=== PATIENT | female | born 1990 | race Caucasian/White ===

== ENCOUNTER 2024-03-14 14:20 | Outpatient (REF) | payer OTHER, SELFPAY ==
[2024-03-14 17:22] LABS: MANUAL DIFF FLAG NO
[2024-03-14 17:28] LABS: Basophils Percent Auto 0.8 % (0-2); Eosinophils Absolute Auto 0.2 X10*3/uL (0.0-0.4); Eosinophils Percent Auto 4.1 % (0-4); Hematocrit 36.1 % (37.0-47.0); Hemoglobin 12.1 g/dl (12.0-16.0); Imm Gran Abs Auto 0.03 X10*3/uL (0.00-0.03); Imm Gran Pct Auto 0.6 % (0.0-0.4); Lymphocytes Absolute Auto 1.6 X10*3/uL (1.2-4.9); Lymphocytes Percent Auto 30.8 % (20-40); Mean Corpuscular HGB Conc 33.5 g/dl (31.0-35.0); Mean Corpuscular Hemoglobin 28.9 pg (27.0-33.0); Mean Corpuscular Volume 86.4 fL (80.0-98.0); Mean Platelet Volume 11.5 fL (9.4-12.3); Monocytes Absolute Auto 0.3 X10*3/uL (0.1-1.2); Monocytes Percent Auto 5.9 % (2-11); Neutrophils Absolute Auto 2.9 x10*3/uL (2.0-8.3); Neutrophils Percent Auto 57.8 % (45-73); Platelet Count 227 X10*3/uL (160-400); Red Blood Count 4.18 X10*6/uL (4.20-5.50); Red Cell Distribution Width 12.1 % (11.0-16.0); White Blood Count 5.1 X10*3/uL (4.8-10.8)
[2024-03-14 17:41] LABS: Alanine Aminotransferase 20 U/L (0-31); Aspartate Amino Transferase 23 U/L (5-31); C Reactive Protein < 0.04 mg/dL (< or = 0.50); Estimated Glomerular Filt Rate > 60
[2024-03-14 18:08] LABS: Erythrocyte Sedimentation Rate 6 MM/HR (0-20)
[2024-03-14 18:13] LABS: Rheumatoid Factor < 13.0 IU/mL (<15.0)
[2024-03-15 03:53] LABS: HBS Num1 22.58 mIU/mL (0-7.99); HBc Num1 0.14 S/CO (0.00-0.79); HBsAGNum1 0.35 S/CO (0.00-0.99); Hepatitis B Core Antibody Nonreactive (Nonreactive); Hepatitis B Surface Antigen Negative (Negative); ~HepC Num1 0.13 S/CO (0.00-0.79); ~Hepatitis B Surface Antibody REACTIVE (Nonreactive); ~Hepatitis C Antibody Nonreactive (Nonreactive)
[2024-03-17 13:49] LABS: Anti Nuclear Antibody Pattern Nuclear, Speckled; Anti Nuclear Antibody Screen POSITIVE (NEGATIVE)
[2024-03-17 17:38] LABS: TS Negative Control Passed; TS Panel A 0; TS Panel B 1; TS Positive Control Passed; TSpotTB Negative (Negative)
[2024-03-17 18:28] LABS: Cyclic Citrullinated Peptide <16 UNITS
== END 2024-03-14 14:21 | disposition home or self-care (01) ==
LOC: HO.HKASLDS 14:20
PROVIDERS: PCP Internal Medicine; Visit Provider Internal Medicine Rheumatology
DX: M06.9 Rheumatoid arthritis, unspecified (principal); Z79.899 Other long term (current) drug therapy; Z79.60 Long term (current) use of unspecified immunomodulators and immunosuppressants; Z11.59 Encounter for screening for other viral diseases; Z72.89 Other problems related to lifestyle
CPT/HCPCS: 36415; 82565; 84450; 84460; 85025; 85652; 86038; 86039; 86140; 86200; 86431; 86481; 86704; 86706; 86803; 87340; 99212

== ENCOUNTER 2024-03-14 14:20 | Outpatient (AMB) | payer OTHER, SELFPAY ==
--- NOTE | 2024-03-14 14:26 | A.OFFVIS_ITS ---
Vital Signs 03/14/24 14:27 Height 5 ft 4 in Weight 134 lb 8 oz BMI 23.1 BP 100/62 Blood Pressure Location Lt brachial Position Sitting Pulse 81 Pulse Source Pulse Oximeter Pulse Oximetry (%) 99 Oxygen Delivery Method Room Air Intake Visit Reasons: RA Intake Note: Patient presents for follow up on RA today. She would like refill of hydroxychloroquine Accompanied by: Child Allergies codeine [CODEINE] Allergy (Unknown, Unverified 03/14/24 14:28) anxious and sob HPI HPI RA: Details: Intermittent pain and swelling in hands (3-4 days out of the week) onset 2 months ago then progressed to involve left foot and shoulder pain. MS 15-20 minutes. She has not had hydroxychloroquine in 2 months. She contacted our office but not receive a call back. She is currently on an antibiotic for suspected tooth infection day 3/5 of amoxicillin. She discontinued Enbrel due to recurrent URIs. She did not tolerate Humira due to recurrent dental infections and UTIs. She failed Cimzia in the past. [facility] Medical History (Updated 03/14/24 @ 16:14 by Evan Yusuf MD) Bowel perforation delivery delivered Broken femur Migraines Depression Anxiety Rheumatoid arthritis Surgical History (Updated 03/14/24 @ 14:37 by Kathe Escobar CMA) S/P removal of ovarian cyst H/O gastric sleeve Family History (Updated 03/14/24 @ 14:38 by Kathe Escobar CMA) Father Arthritis Orthostatic hypertension Social History (Updated 03/14/24 @ 14:39 by Kathe Escobar CMA) Household Members: Family Alcohol intake: current Alcohol intake frequency: holidays/special occasions only Patient Tobacco Use Status: Never used Tobacco Review of Systems Const All systems reviewed & are unremarkable except as noted in HPI and below Physical Exam Vital Signs: Last Vital Signs Pulse 81 03/14/24 14:27 BP 100/62 03/14/24 14:27 Pulse Ox 99 03/14/24 14:27 Oxygen Delivery Method Room Air 03/14/24 14:27 BMI result Body Mass Index 23.1 Const Other: General: Comfortable CVS: RRR Respiratory: clear to auscultation bilaterally. Good respiratory effort Skin: No lesions seen MSK: Tender to palpate right PIP and right 3rd and 5th MTPs and 4th toe. No synovitis. No tenderness of shoulders. Good range of motion of upper extremity and lower extremities. Assessment & Plan Assessment & Plan (1) Rheumatoid arthritis: Comment: Previously controlled with monotherapy on hydroxychloroquine. She is experiencing joint pain off of hydroxychloroquine. She is also experiencing possible dental infection on amoxicillin. Infections can heightened joint pain. Code(s): M06.9 - Rheumatoid arthritis, unspecified Category: Medical Qualifiers: Rheumatoid factor presence: unspecified presence Laterality: unspecified laterality Plan: Labs for drug and disease monitoring on high-risk medication ordered. After lab results are back, I will send prescription for hydroxychloroquine 300 mg daily. She has an upcoming eye exam for hydroxychloroquine surveillance. If joint symptoms worsen, she will call office. I am deferring prednisone course at this time due to concurrent possible dental infection. Avoid oral NSAIDs in setting of history of bariatric surgery She will continue to take Tylenol as needed [facility] Return to clinic in 3 months (2) Other care home (current) drug therapy: Code(s): Z79.899 - Other care home (current) drug therapy Category: Medical Plan: See above Orders: Orders Erythrocyte Sedimentation Rate Today M06.9 - Rheumatoid arthritis, unspecified, Z79.899 - Other care home (current) drug therapy C Reactive Protein Today M06.9 - Rheumatoid arthritis, unspecified, Z79.899 - Other care home (current) drug therapy Aspartate Amino Transferase Today Z79.60 - termite treater (current) use of unspecified immunomodulators and immunosuppressants Complete Blood Count Auto Diff Today Z79.60 - [facility] (current) use of unspecified immunomodulators and immunosuppressants T Spot TB Today M06.9 - Rheumatoid arthritis, unspecified, Z79.899 - Other termite treater (current) drug therapy BRITTANY Reflex Titer and Pattern Today M06.9 - Rheumatoid arthritis, unspecified, Z79.899 - Other care home (current) drug therapy Rheumatoid Factor Today M06.9 - Rheumatoid arthritis, unspecified, Z79.899 - Other care home (current) drug therapy Alanine Aminotransferase Today Z79.60 - penitentiary (current) use of unspecified immunomodulators and immunosuppressants Creatinine Today Z79.60 - penitentiary (current) use of unspecified immunomodulators and immunosuppressants Cyclic Citrullinated Peptide Today M06.9 - Rheumatoid arthritis, unspecified, Z79.899 - Other care home (current) drug therapy Hepatitis B,C Profile Today M06.9 - Rheumatoid arthritis, unspecified, Z79.899 - Other care home (current) drug therapy Coding Level of Care Code Est Pt Level 4 (50998) Complex EM visit Add On G2211 Diagnoses Rheumatoid arthritis M06.9 Rheumatoid factor presence: unspecified presence Laterality: unspecified laterality Other termite treater (current) drug therapy Z79.899
[2024-03-14 14:27] VITALS: BP 100/62; PULSE 81; O2SAT 99; BMI 23.1
== END 2024-03-14 15:03 | disposition home or self-care (01) ==
PROVIDERS: PCP Internal Medicine; Visit Provider Internal Medicine Rheumatology
DX: M06.9 Rheumatoid arthritis, unspecified (principal); Z79.899 Other long term (current) drug therapy
CPT/HCPCS: 99214; G2211